=== PATIENT | male | born 1960 | race Caucasian/White ===

== ENCOUNTER 2024-12-01 16:07 | Inpatient (IN) | payer OTHER ==
[~2024-12-01] VITALS: Ht 182.9 cm; Wt 90.0 kg
[2024-12-01 17:46] LABS: PLATELET COUNT (AUTO) 189 K/uL (150-450); RED BLOOD CELL COUNT(AUTO) 4.98 MIL/uL (4.50-5.90); RED CELL DISTRIBUTION WIDTH 13.8 % (11.5-14.5); WHITE BLOOD COUNT (AUTO) 9.7 K/uL (4.5-11.0)
[2024-12-01] MEDS: KETOROLAC TROMETHAMINE 30 MG/ML VIAL IVP ONE (17:56)
[2024-12-01] MEDS: AMPICILLIN SODIUM/SULBACTAM NA 3 GM in SODIUM CHLORIDE 0.9% 100 ML IV ONE (18:04)
[2024-12-01 18:07] LABS: CALCIUM, TOTAL 8.5 mg/dL (8.8-10.5); CREATININE 1.02 mg/dL (0.60-1.30); GLOMERULAR FILTR. RATE CALC > 60 mL/min (>60); GLUCOSE,RANDOM 99 mg/dL (70-110); SODIUM SERUM 136 mmol/L (136-145); UREA NITROGEN, BLOOD 29 mg/dL (7-18)
[2024-12-01] MEDS ORDERED: SODIUM CHLORIDE 0.9% 100 ML ONE (18:48)
[2024-12-01] MEDS ORDERED: 0.9% SODIUM CHLORIDE 10 ML SYRINGE IVP ONE (18:48)
[2024-12-01] MEDS ORDERED: IOHEXOL 350 MG/ML 100 ML VIAL ONE (18:48)
[2024-12-01] MEDS ORDERED: MAGNESIUM HYDROXIDE SUSPENSION 30 ML UDCUP PO PRN (19:30)
[2024-12-01] MEDS: CLINDAMYCIN 300 MG/D5% WATER 50 ML IV SCH (20:24)
[2024-12-01] MEDS: DOCUSATE SODIUM 100 MG CAPSULE PO SCH (20:26)
[2024-12-01 20:50] VITALS: BP 126/78; PULSE 66; RESP 18; TEMP 98.1; O2SAT 98
[2024-12-02] MEDS: OxyCODONE HCL/ACETAMINOPHEN 5-325 MG TABLET PO PRN (02:16)
[2024-12-02] MEDS ORDERED: SODIUM CHLORIDE 0.9% 500 ML IV ONE ×2 (03:46→12:15)
[2024-12-02 04:12] VITALS: BP 119/70; PULSE 68; RESP 18; TEMP 98.6; O2SAT 99
[2024-12-02 06:58] LABS: CALCIUM, TOTAL 7.9 mg/dL (8.8-10.5); CREATININE 1.05 mg/dL (0.60-1.30); GLOMERULAR FILTR. RATE CALC > 60 mL/min (>60); GLUCOSE,RANDOM 76 mg/dL (70-110); SODIUM SERUM 139 mmol/L (136-145); UREA NITROGEN, BLOOD 34 mg/dL (7-18)
[2024-12-02] MEDS: FAMOTIDINE 20 MG TABLET PO SCH (08:05)
[2024-12-02 08:53] VITALS: BP 126/74; PULSE 70; RESP 18; TEMP 98; O2SAT 96
[2024-12-02 19:33] VITALS: BP 134/81; PULSE 74; RESP 18; TEMP 98.2; O2SAT 97
[2024-12-02] MEDS: ACETAMINOPHEN 325 MG TABLET PO PRN (22:25)
[2024-12-03 04:14] VITALS: BP 123/77; PULSE 62; RESP 18; TEMP 97.4; O2SAT 95
[2024-12-03 07:16] LABS: CALCIUM, TOTAL 8.1 mg/dL (8.8-10.5); CREATININE 1.04 mg/dL (0.60-1.30); GLOMERULAR FILTR. RATE CALC > 60 mL/min (>60); GLUCOSE,RANDOM 93 mg/dL (70-110); SODIUM SERUM 137 mmol/L (136-145); UREA NITROGEN, BLOOD 23 mg/dL (7-18)
[2024-12-03 08:00] VITALS: BP 125/84; PULSE 67; RESP 20; TEMP 98.1; O2SAT 95
[2024-12-03] MEDS ORDERED: AMLO-257 PO (12:27)
[2024-12-03] MEDS ORDERED: FAMO20 PO (12:27)
[2024-12-03] MEDS ORDERED: ACET-2247 PO (12:28)
[2024-12-03] MEDS ORDERED: CLIN300C58 PO (12:28)
[2024-12-03] MEDS ORDERED: MAGN-169 PO (12:28)
[2024-12-03 14:12] VITALS: BP 115/78; PULSE 73; RESP 19; TEMP 98.2; O2SAT 96
== END 2024-12-03 15:00 | DRG 603 ==
LOC: EMS 16:07 → EDH 19:17 → 6S 20:55
PROVIDERS: ADMIT Internal Medicine; ATTEND Internal Medicine
DX: L03.211 Cellulitis of face (principal); I10 Essential (primary) hypertension; E87.5 Hyperkalemia; F17.200 Nicotine dependence, unspecified, uncomplicated; E87.6 Hypokalemia
CPT/HCPCS: 70487; 80048; 85025; 93005; 96365; 96367; 96375; 99285; J0295; J1885; J3490; J7040; J7050